=== PATIENT | male | born 2000 | race Caucasian/White ===

== ENCOUNTER 2020-10-05 20:06 | Emergency (ER) | payer OTHER ==
[2020-10-05 20:11] VITALS: Wt 81.8 kg
[2020-10-05] MEDS ORDERED: FEXOFENADINE HC60 MG PO (20:13)
[2020-10-05] MEDS ORDERED: OMEPRAZOLE40 MG PO (20:14)
[2020-10-05 21:30] LABS: BILIRUBIN NEGATIVE (NEGATIVE); KETONE NEGATIVE (NEGATIVE); NITRITE NEGATIVE (NEGATIVE); UROBILINOGEN NORMAL mg/dL (< 2)
[2020-10-05 21:33] LABS: BACTERIA MODERATE HPF (NONE SEEN); WHITE CELLS - URINE 0-5 HPF (0-1)
[2020-10-05 23:16] VITALS: BP 130/79
== END 2020-10-05 23:16 | disposition home or self-care (01) ==
LOC: D.ER 20:06
PROVIDERS: Family Medicine
DX: N50.811 Right testicular pain (principal)